=== PATIENT | male | born 1975 | race Caucasian/White ===

== ENCOUNTER 2018-07-14 07:18 | Day surgery (SDC) | payer OTHER ==
[~2018-07-14 07:18] MED LIST: DIPHENHYDRAMINE HCL 50 MG/ML VIAL ONE; EPINEPHRINE INJ 1 MG/10 ML DISP.SYRIN ONE; FLUMAZENIL INJ 0.5 MG/5 ML VIAL ONE; GLUCAGON,HUMAN RECOMB 1 MG INJ ONE; NALOXONE HCL INJ/PF 0.4 MG/1 ML SDV ONE; ONDANSETRON HCL INJ/PF 4 MG/2 ML SDV ONE
[2018-07-14] MEDS: MIDAZOLAM 2 MG/2 ML INJ ONE ×5 (07:34→07:48)
[2018-07-14] MEDS: FENTANYL CITRATE INJ/PF 100 MCG/2 ML AMPUL ONE ×3 (07:36→07:53)
[2018-07-14] MEDS ORDERED: LIDOCAINE 2% JELLY 30 ML TUBE ONE (07:45)
--- NOTE | 2018-07-14 08:19 | Discharge Summary ---
Discharge Summary (SDC) - Discharge Final Diagnosis: Normal colonoscopy Date of Surgery: 07/14/18 Discharge Date: 07/14/18 Condition: Good Treatment or Instructions: [facility] [place] [id number] POST ENDOSCOPY DISCHARGE INSTRUCTIONS 1. Diet: Start clear liquids that a regular diet as tolerated. 2. Resume all preoperative medications. All oral anticoagulants and aspirins can be resumed 24 hours after procedure. 3. If a polypectomy was performed some bleeding per rectum may occur. This should stop within 3 days. If not, please contact the office. 4. If you had a colonoscopy you may experience some bloating and delayed return of normal bowel function for several days, your regular bowel movement pattern should resume within a week. 5. Please contact [facility] at to make an appointment with Dr. Mcintyre for 1 to 3 weeks following procedure. 6. If you have any questions or concerns regarding your care,treatment plan or follow up, please contact our office. 7. Per clinical guidelines we recommend you undergo a repeat colonoscopy in 10 years. Discharge Diet: As Tolerated Discharge Activity: Activity As Tolerated Home Care Assistance: None Needed Report the Following to Your Physician Immediately: Shortness of Breath, Increase in Pain, Fever over 101 Degrees
--- NOTE | 2018-07-14 08:22 | Operative Report ---
Operative Report DATE OF SURGERY: 07/14/18 PREOPERATIVE DIAGNOSIS: 1. History of irregular bowel movements. 2. History of anal fissure. 3. Hypertonic anal sphincter POSTOPERATIVE DIAGNOSIS: Normal colonoscopy; no evidence of active anal fissure OPERATION: Total colonoscopy to cecum with photodocumentation and random biopsies of the right and left colon with cold forceps device SURGEON: TIMO OSBORN ANESTHESIA: Moderate Sedation TISSUE REMOVED OR ALTERED: Biopsies right and left colon mucosa COMPLICATIONS: None ESTIMATED BLOOD LOSS: Scant INTRAOPERATIVE FINDINGS: See below PROCEDURE: Obtaining informed consent the patient was taken from the preoperative holding area to the main endoscopy suite where monitoring devices were attached to the patient. Plan and surgical timeout were conducted The patient was placed in the left lateral decubitus position with knees to chest. A perianal examination was performed. There was no visible or palpable anorectal pathology. Sphincter tone was increased consistent with hypertonicity; there was no true anal stenosis however. The colonoscope was advanced through the anal rectal canal, all the way to the cecum. Visualization of the cecum was achieved and the ileocecal valve, the appendiceal orifice and transillumination of the anterior abdominal wall was achieved. This was an excellent study on the well-prepped bowel. The colonoscope was withdrawn slowly and methodically checked and the mucosa carefully. There was no evidence of tumor, stricture, bleeding or polyp. Random to the right and left colon were obtained using the cold forceps device and labeled as right and left colon mucosa respectively; there was no evidence of diverticuloses. The scope was slowly withdrawn through the anal rectal canal. Complete visualization of the rectum was achieved with photodocumentation. The scope was withdrawn to the patient's anus. The patient tolerated the procedure well and was taken to the recovery area in stable condition. Per Screening guidelines, patient will be appropriate candidate for follow-up colonoscopy in 10 years, or sooner if symptoms develop.
[2018-07-14 09:29] VITALS: BP 100/64
== END 2018-07-14 09:40 | disposition home or self-care (01) ==
LOC: END 07:18
PROVIDERS: ATTEND Surgery
DX: K58.9 Irritable bowel syndrome, unspecified (principal); Z79.1 Long term (current) use of non-steroidal anti-inflammatories (NSAID); Z01.818 Encounter for other preprocedural examination; R42 Dizziness and giddiness
CPT/HCPCS: 45380; 88305 ×2; J2250; J3010; J2405; J0171; J1200; J1610; J2310; J3490

== ENCOUNTER → 2019-06-13 | Outpatient (CLI) | payer OTHER ==
--- NOTE | 2019-06-14 13:12 | XCELERA REPORT ---
[address] [address] Lower Extremity Arterial Evaluation Name: JUAN DIEGO BAIN Age: 43 yrs Gender: Male : 1975 Patient Status: Outpatient Patient Location: RAD Study Date: 06/13/2019 01:10 PM Procedure: A color flow and duplex scan of the lower extremity arteries was performed on the left with velocity and waveform anaylsis. Reason For Study: ANEURYSM Ordering Physician: VERONICA GUILLORY Performed By: Alberto Thompson Measurements and Calculations Right Left FUNDRAISING DIRECTOR PSV 103.4 cm/sec Prox PFA PSV -76.2 cm/sec Prox SFA PSV 98.5 cm/sec Mid SFA PSV -113.9cm/sec Dist SFA PSV -89.3 cm/sec Prox Pop A PSV 61.7 cm/sec Dist Pop A PSV -79.0 cm/sec Dist VAISHALI PSV 107.5 cm/sec Dist MACHINING TECHNICIAN PSV 91.3 cm/sec Jonathan Pedis PSV 101.7 90.8 cm/sec Right Side Arterial Evaluation Minimal evaluation, Triphasic Dorsalis Pedis. Left Side Arterial Evaluation Normal velocity and triphasic waveforms noted from the Common Femoral artery to the infrageniculate vessels . Ankle Brachial index not done. Interpretation Summary No hemodynamically significant lesions in the left lower extremity only, on duplex imaging, at rest. : VERONICA GUILLORY > Slim Rowe
== END ==
LOC: RAD 12:34
PROVIDERS: ATTEND Internal Medicine Clinical Cardiac Electrophysiology
DX: R93.6 Abnormal findings on diagnostic imaging of limbs (principal)
CPT/HCPCS: 93926